=== PATIENT | male | born 2000 | race Hispanic/Latino ===

== ENCOUNTER 2019-05-05 | Emergency (ER) | payer SELFPAY ==
[~2019-05-05] MED LIST: ABILIFY5 MG PO; ALBUTEROL0.5 % IN; KRISTALOSE10 GM OR; SINGULAIR5 MG OR; VENTOLIN HFA IN
== END 2019-05-05 13:32 | disposition home or self-care (01) | DRG 605 ==
PROC: 0HQMXZZ Repair Right Foot Skin, External Approach (ICD-10-PCS; principal; 2019-05-05)
DX: S91.311A Laceration without foreign body, right foot, initial encounter (principal); W27.0XXA Contact with workbench tool, initial encounter; Y93.89 Activity, other specified; Y92.009 Unspecified place in unspecified non-institutional (private) residence as the place of occurrence of the external cause

== ENCOUNTER 2019-05-13 | Emergency (ER) | payer SELFPAY ==
[2019-05-13 21:59] LABS: HEMATOCRIT 44.1 % (39.0-50.0); HEMOGLOBIN 14.9 g/dl (14.0-18.0); IMMATURE GRANULOCYTES 0.6 % (0.0-5.0); MEAN CELL VOLUME 86.1 fL CALC (80.0-100.0); MEAN CORPUSCULAR HGB 29.1 pG CALC (26.0-32.0); MEAN CORPUSCULAR HGB CONC 33.8 g/L CALC (32.0-36.0); NEUT# 7.57 thou/uL (1.82-7.42); RED BLOOD COUNT 5.12 mill/uL (4.70-6.10); RED CELL DISTRI WIDTH 11.9 % (11.5-15.5)
[2019-05-13 22:14] LABS: ALBUMIN 5.1 g/dL (3.2-5.0); AMYLASE 53 u/l (30-110); ANION GAP 19 (6-22 (CALC)); BILIRUBIN, TOTAL 0.4 mg/dL (0.0-1.4); BUN 10 mg/dL (9-20); BUN/CREATININE RATIO 13 (12-20 (CALC)); CARBON DIOXIDE 25 mmol/l (22-30); CHLORIDE 99 mmol/l (95-108); CREATININE 0.8 mg/dL (0.7-1.3); GFR > 60 ML/MIN (>=60 (CALC)); GFR FOR AFR.AMER. > 60 ML/MIN (>=60 (CALC)); LIPASE 30 u/l (23-300); POTASSIUM 3.7 mmol/l (3.5-5.1); SGOT/AST 35 u/l (17-59); SODIUM 139 mmol/l (137-146); TOTAL PROTEIN 8.7 g/dL (6.3-8.2)
[2019-05-13 22:17] LABS: ALKALINE PHOSPHATASE 118 u/l (38-126)
[2019-05-13 23:27] LABS: URINE BILIRUBIN - DIPSTICK NEGATIVE (NEGATIVE); URINE BLOOD DIPSTICK NEGATIVE (NEGATIVE); URINE COLOR YELLOW; URINE GLUCOSE - DIPSTICK NEGATIVE (NEGATIVE); URINE KETONE NEGATIVE (NEGATIVE); URINE LEUK ESTERASE NEGATIVE (NEGATIVE); URINE NITRITE - DIPSTICK NEGATIVE (Negative); URINE PH 5.5 (4.5-8.0); URINE PROTEIN - DIPSTICK NEGATIVE (NEG-TRACE); URINE SPECIFIC GRAVITY >=1.030; URINE UROBILINOGEN - DIPSTICK 0.2 E.U./dL (0.2)
[2019-05-13 23:30] LABS: COCAINE NEGATIVE (NEGATIVE)
[2019-05-13 23:31] LABS: BARBITURATES NEGATIVE (NEGATIVE); METHADONE NEGATIVE (NEGATIVE); OXCYCODONE NEGATIVE (NEGATIVE); TETRAHYDROCANNABIONOL POSITIVE (NEGATIVE); TRICYLIC ANTIDEPRESSANTS NEGATIVE (NEGATIVE)
[2019-05-14] MEDS ORDERED: PHENERGAN25 MG/TAB PO (00:34)
== END 2019-05-14 00:45 | disposition home or self-care (01) | DRG 897 ==
PROVIDERS: Family Medicine
DX: F12.129 Cannabis abuse with intoxication, unspecified (principal)